=== PATIENT | female | born 1955 | race Caucasian/White ===

== ENCOUNTER 2018-10-04 14:02 | Outpatient (CLI) | payer OTHER ==
--- NOTE | 2018-10-04 15:40 | BD ---
Exam: DEXA Bone Density 10/04/18 COMPARISON: None. HISTORY: 63-year-old postmenopausal female for screening. FINDINGS: Lumbar Spine: BMD (g/cm2) L1 0.997 T-Score: 0.1 L2 1.068 T-Score: 0.4 L3 1.206 T-Score: 1.1 L4 1.208 T-Score: 1.3 L1-L4 1.123 T-Score: 0.7 Left Femoral Neck: 0.759 T-Score: -0.8 Total Proximal Femur: 0.947 T-Score: 0.0 Impression: Normal bone mineral density. POS: CET
== END 2018-10-04 14:03 | disposition home or self-care (01) ==
LOC: BICMAMMO 14:02
PROVIDERS: ATTEND Obstetrics & Gynecology
DX: Z12.31 Encounter for screening mammogram for malignant neoplasm of breast (principal); Z13.820 Encounter for screening for osteoporosis
CPT/HCPCS: 77063; 77067; 77080

== ENCOUNTER 2022-04-27 13:09 | Outpatient (CLI) | payer MEDICARE | END 2022-04-27 13:10 | disposition home or self-care (01) | LOC: BICMAMMO 13:09 | PROVIDERS: ATTEND Nurse Practitioner Family | DX: Z12.31 Encounter for screening mammogram for malignant neoplasm of breast (principal) | CPT/HCPCS: 77063; 77067 ==

== ENCOUNTER 2024-07-31 13:43 | Outpatient (CLI) | payer MEDICARE | END 2024-07-31 13:44 | disposition home or self-care (01) | LOC: BICMAMMO 13:43 | PROVIDERS: ATTEND Nurse Practitioner Family | DX: Z12.31 Encounter for screening mammogram for malignant neoplasm of breast (principal) | CPT/HCPCS: 77063; 77067 ==

== ENCOUNTER 2024-10-04 10:20 | Outpatient (CLI) | payer MEDICARE | END 2024-10-04 10:21 | disposition home or self-care (01) | LOC: BICRAD 10:20 | PROVIDERS: ATTEND Nurse Practitioner Family | DX: M54.2 Cervicalgia (principal); V89.2XXA Person injured in unspecified motor-vehicle accident, traffic, initial encounter; M47.812 Spondylosis without myelopathy or radiculopathy, cervical region | CPT/HCPCS: 72052 ==

== ENCOUNTER 2025-08-06 13:07 | Outpatient (CLI) | payer MEDICARE | END 2025-08-06 13:08 | disposition home or self-care (01) | LOC: BICMAMMO 13:07 | PROVIDERS: ATTEND Nurse Practitioner Family | DX: Z12.31 Encounter for screening mammogram for malignant neoplasm of breast (principal) | CPT/HCPCS: 77063; 77067 ==

== ENCOUNTER 2025-09-10 14:48 | Outpatient (CLI) | payer MEDICARE | END 2025-09-10 14:49 | disposition home or self-care (01) | LOC: ULT 14:48 | PROVIDERS: ATTEND Specialist | DX: E07.89 Other specified disorders of thyroid (principal); E04.2 Nontoxic multinodular goiter | CPT/HCPCS: 76536 ==